=== PATIENT | male | born 1975 | race Hispanic/Latino ===

== ENCOUNTER 2017-09-30 19:48 | Emergency (ER) | payer OTHER ==
[~2017-09-30] VITALS: Ht 170.2 cm; Wt 131.5 kg
--- NOTE | 2017-09-30 21:07 | Diagnostic Imaging Report ---
EXAM: ABDOMEN ACUTE SERIES W/PA CXR DATE: 09/30/2017 8:13 PM Time stamp on exam: 2019 hours INDICATION: Constipation COMPARISON: None FINDINGS: LINES/TUBES: None BOWEL PATTERN: No evidence for obstruction. SOFT TISSUES: No abnormal calcifications. No mass effect. CHEST: The lungs are clear, no cardiomegaly, pleural effusion or pneumothorax. BONES: No acute findings. IMPRESSION: 1. No acute intrathoracic abnormality. 2. No evidence of obstructive bowel gas pattern. Signed by: Dr. Og Bryan M.D. on 09/30/2017 9:03 PM
[2017-09-30] MEDS ORDERED: LACTULOSE20 GM/30 M PO (21:41)
[2017-09-30 21:42] VITALS: BP 156/90
== END 2017-09-30 21:49 | disposition home or self-care (01) ==
LOC: ER 19:48
DX: K59.00 Constipation, unspecified (principal)
CPT/HCPCS: 74022; 99283

== ENCOUNTER 2020-04-25 06:36 | Inpatient (IN) | payer OTHER ==
[~2020-04-25] VITALS: Ht 170.2 cm; Wt 142.0 kg
[~2020-04-25 06:36] MED LIST: LACTULOSE20 GM/30 M PO
[2020-04-25 07:37] LABS: BASOPHILS % 0.5 % (0.0-1.0); EOSINOPHILS # (AUTO) 0.2 (0.0-0.4); EOSINOPHILS % 2.4 % (0.0-6.0); HEMATOCRIT 26.1 % (38.2-49.6); HEMOGLOBIN 7.6 g/dL (14.0-18.0); LYMPHOCYTES % 15.2 % (18.0-39.1); MEAN CORPUSCULAR HEMOGLOBIN 28.6 pg (28-32); MEAN CORPUSCULAR HGB CONC 29.1 g/dL (31-35); MEAN CORPUSCULAR VOLUME 98.1 fL (81-99); MONOCYTES # (AUTO) 0.5 (0.2-0.8); NEUTROPHILS # (AUTO) 4.6 (2.1-6.9); NEUTROPHILS % 73.1 % (38.7-80.0); PLATELET COUNT 202 x10e3/uL (140-360); RED BLOOD COUNT 2.66 x10e6/uL (4.3-5.7); RED CELL DISTRIBUTION WIDTH 15.7 % (11.7-14.4)
[2020-04-25 07:44] LABS: CLARITY,URINE HAZY (CLEAR); COLOR,URINE YELLOW (YELLOW)
[2020-04-25 07:45] LABS: BILIRUBIN,URINE NEGATIVE (NEGATIVE); KETONES,URINE NEGATIVE (NEGATIVE); LEUKOCYTE ESTERASE ,URINE TRACE (NEGATIVE); NITRITE,URINE NEGATIVE (NEGATIVE); PROTEIN,URINE DIPSTICK >=300 (NEGATIVE); URINE UROBILINOGEN 0.2 mg/dL (0.2 - 1)
[2020-04-25 07:48] LABS: INR 1.13; PROTHROMBIN TIME 15.1 seconds (11.9-14.5)
[2020-04-25 07:49] LABS: PARTIAL THROMBOPLASTIN TIME 42.2 seconds (23.8-35.5)
[2020-04-25 07:57] LABS: WBC,URINE (MAN) 21-50 /HPF (0-5)
[2020-04-25 07:58] LABS: BACTERIA,URINE FEW /HPF; EPITHELIAL CELLS,URINE FEW /LPF; MUCUS,URINE FEW (RARE)
[2020-04-25 07:59] LABS: ALBUMIN 3.2 g/dL (3.5-5.0); ALBUMIN/GLOBULIN RATIO 0.9 (0.8-2.0); ANION GAP 19.3 mmol/L (8-16); CREATININE, SERUM 10.69 mg/dL (0.72-1.25)
[2020-04-25 08:05] LABS: CREATINE KINASE MB 8.3 ng/mL (0-5.0)
[2020-04-25 08:07] LABS: CALCIUM 6.2 mg/dL (8.4-10.2); POTASSIUM 7.3 mmol/L (3.5-5.1)
[2020-04-25] MEDS ORDERED: SODIUM BICARBONATE 8.4% INJ 50 ML SYR IV STA ×4 (08:36→18:53)
[2020-04-25] MEDS ORDERED: DEXTROSE 50% SYRINGE 50 ML IV STA (08:36)
[2020-04-25] MEDS ORDERED: CALCIUM GLUCONATE 10% INJ 4.65 MEQ in SODIUM CHLORIDE 0.9% 50ML 50 ML IV ONE (08:45)
[2020-04-25] MEDS ORDERED: INSULIN REGULAR, HUMAN 100 UNIT/1 ML 3ML VIAL IV ONE (08:45)
[2020-04-25] MEDS: CEFTRIAXONE SOD 1 GM/NS 50 ML 50 ML IV SCH ×2 (08:53→22:07)
[2020-04-25] MEDS ORDERED: ONDANSETRON HCL INJ 2MG/ML 2ML 2 MG/ML VIAL IV PRN ×2 (09:45→11:00)
[2020-04-25] MEDS ORDERED: LIDOCAINE HCL 1% LOCAL INJ 20 ML VIAL ONE (09:54)
[2020-04-25] MEDS ORDERED: ACETAMINOPHEN 325 MG TAB PO STA (10:49)
[2020-04-25] MEDS ORDERED: DESMOPRESSIN ACETATE 4 MCG/ML VIAL IV STA (10:49)
[2020-04-25] MEDS ORDERED: SODIUM CHLORIDE 0.9% 250ML 250 ML IV ONE (11:00)
[2020-04-25] MEDS ORDERED: SOD POLYSTYRENE SULFONATE SUSP 15 GM/60 ML BTL PO ONE (11:00)
[2020-04-25] MEDS ORDERED: DEXTROSE 50% SYRINGE 50 ML IV PRN (11:00)
[2020-04-25] MEDS ORDERED: ZOLPIDEM TARTRATE 5 MG TAB PO PRN (11:00)
[2020-04-25] MEDS ORDERED: DESMOPRESSIN ACETATE IV ONE (11:15)
[2020-04-25] MEDS ORDERED: SODIUM CHLORIDE 0.9% IV ONE (11:15)
[2020-04-25] MEDS ORDERED: SODIUM BICARBONATE 8.4% SYRING 50 ML ONE (11:22)
[2020-04-25] MEDS: INSULIN REGULAR, HUMAN 100 UNIT/1 ML 3ML VIAL SQ SCH ×3 (11:30→21:00)
[2020-04-25 11:59] LABS: CREATINE KINASE MB 8.1 ng/mL (0-5.0)
[2020-04-25 12:00] VITALS: BP 106/44
[2020-04-25] MEDS ORDERED: SODIUM CHLORIDE 0.9% 1000ML 2,000 ML ONE (12:26)
[2020-04-25 12:30] VITALS: BP 106/44
[2020-04-25 12:31] VITALS: BP 106/44
[2020-04-25] MEDS ORDERED: SODIUM CHLORIDE 0.9% 1000ML 2,000 ML IV PRN (13:00)
[2020-04-25] MEDS ORDERED: MANNITOL 25% 12.5GM/50 ML VIAL IV PRN (13:00)
[2020-04-25] MEDS ORDERED: HEPARIN SOD (PORCINE) 1000 UNIT/ML SDV IV PRN (13:00)
[2020-04-25] MEDS ORDERED: SODIUM CHLORIDE 0.9% 250ML 500 ML IV PRN (13:00)
[2020-04-25] MEDS ORDERED: ALBUMIN 25% 12.5GM 0.25 GM/ML BTL IV PRN (13:00)
[2020-04-25 16:00] VITALS: BP 152/78
[2020-04-25 16:29] LABS: ABG HCO3 15 mmol/L (22-26); ABG PCO2 36 mmHg (35-45); ABG PH 7.23 (7.35-7.45); ABG PO2 77 mmHg (80-105); ABG TCO2 16
[2020-04-25 18:27] LABS: CREATINE KINASE MB 10.4 ng/mL (0-5.0)
[2020-04-25 18:40] LABS: ANION GAP 17.4 mmol/L (8-16); CREATININE, SERUM 8.6 mg/dL (0.72-1.25); POTASSIUM 5.4 mmol/L (3.5-5.1)
[2020-04-25 18:47] LABS: CALCIUM 6.8 mg/dL (8.4-10.2)
[2020-04-25 20:00] VITALS: BP 126/68
[2020-04-25 21:00] VITALS: BP 122/74
[2020-04-26] VITALS (9 sets, daily range): BP systolic 112–162; BP diastolic 64–89
[2020-04-26 05:24] LABS: BASOPHILS % 0.4 % (0.0-1.0); EOSINOPHILS # (AUTO) 0.2 (0.0-0.4); EOSINOPHILS % 3.7 % (0.0-6.0); LYMPHOCYTES # (AUTO) 1.1 (1.0-3.2); LYMPHOCYTES % 23.6 % (18.0-39.1); MEAN CORPUSCULAR HGB CONC 30.8 g/dL (31-35); MEAN CORPUSCULAR VOLUME 97.2 fL (81-99); MONOCYTES # (AUTO) 0.6 (0.2-0.8); MONOCYTES % 13.3 % (4.4-11.3); NEUTROPHILS # (AUTO) 2.7 (2.1-6.9); NEUTROPHILS % 58.6 % (38.7-80.0); PLATELET COUNT 171 x10e3/uL (140-360); RED BLOOD COUNT 2.17 x10e6/uL (4.3-5.7); RED CELL DISTRIBUTION WIDTH 15.8 % (11.7-14.4)
[2020-04-26 05:43] LABS: ALBUMIN 2.7 g/dL (3.5-5.0); ALBUMIN/GLOBULIN RATIO 0.9 (0.8-2.0); ANION GAP 15.5 mmol/L (8-16); CHOL/HDL RATIO 1.9 (3.9-4.7); CREATININE, SERUM 8.78 mg/dL (0.72-1.25); HEMOGLOBIN 6.5 g/dL (14.0-18.0); POTASSIUM 5.5 mmol/L (3.5-5.1)
[2020-04-26 05:45] LABS: HEMATOCRIT 21.1 % (38.2-49.6)
[2020-04-26 06:09] LABS: CALCIUM 6.3 mg/dL (8.4-10.2)
[2020-04-26] MEDS: INSULIN REGULAR, HUMAN 100 UNIT/1 ML 3ML VIAL SQ SCH ×4 (06:15→21:00)
[2020-04-26] MEDS ORDERED: SODIUM CHLORIDE 0.9% 250ML 250 ML IV ONE (06:30)
[2020-04-26] MEDS: CEFTRIAXONE SOD 1 GM/NS 50 ML 50 ML IV SCH ×2 (10:26→21:09)
[2020-04-26] MEDS: CALCIUM ACETATE 667 MG GELCAP PO SCH ×2 (12:30→17:25)
[2020-04-26] MEDS: SODIUM FERRIC GLUCONATE COMPLX 125 MG in SODIUM CHLORIDE 0.9% 100 ML 100 ML IV SCH (12:30)
[2020-04-27] VITALS (9 sets, daily range): BP systolic 151–173; BP diastolic 76–94
[2020-04-27 05:43] LABS: BASOPHILS % 0.4 % (0.0-1.0); EOSINOPHILS # (AUTO) 0.2 (0.0-0.4); EOSINOPHILS % 3.2 % (0.0-6.0); HEMATOCRIT 25.9 % (38.2-49.6); HEMOGLOBIN 8.1 g/dL (14.0-18.0); LYMPHOCYTES # (AUTO) 1.1 (1.0-3.2); LYMPHOCYTES % 20.6 % (18.0-39.1); MEAN CORPUSCULAR HEMOGLOBIN 28.6 pg (28-32); MEAN CORPUSCULAR HGB CONC 31.3 g/dL (31-35); MEAN CORPUSCULAR VOLUME 91.5 fL (81-99); MONOCYTES # (AUTO) 0.8 (0.2-0.8); MONOCYTES % 14.2 % (4.4-11.3); NEUTROPHILS # (AUTO) 3.3 (2.1-6.9); NEUTROPHILS % 61.2 % (38.7-80.0); PLATELET COUNT 184 x10e3/uL (140-360); RED BLOOD COUNT 2.83 x10e6/uL (4.3-5.7); RED CELL DISTRIBUTION WIDTH 15.6 % (11.7-14.4)
[2020-04-27 06:02] LABS: ANION GAP 15.2 mmol/L (8-16); CREATININE, SERUM 6.55 mg/dL (0.72-1.25); POTASSIUM 4.2 mmol/L (3.5-5.1)
[2020-04-27 06:58] LABS: CALCIUM 6.6 mg/dL (8.4-10.2)
[2020-04-27] MEDS: INSULIN REGULAR, HUMAN 100 UNIT/1 ML 3ML VIAL SQ SCH ×4 (07:00→21:00)
[2020-04-27] MEDS: PANTOPRAZOLE SOD 40 MG TABEC PO SCH (08:23)
[2020-04-27] MEDS: CALCIUM ACETATE 667 MG GELCAP PO SCH ×3 (08:24→16:29)
[2020-04-27] MEDS: CEFTRIAXONE SOD 1 GM/NS 50 ML 50 ML IV SCH ×2 (08:55→20:24)
[2020-04-27] MEDS: SODIUM FERRIC GLUCONATE COMPLX 125 MG in SODIUM CHLORIDE 0.9% 100 ML 100 ML IV SCH (13:25)
[2020-04-27] MEDS ORDERED: FENTANYL CITRATE/PF 100MCG/2 ML INJ ONE (14:05)
[2020-04-27] MEDS ORDERED: MIDAZOLAM HCL 2 MG/2 ML VIAL ONE (14:05)
[2020-04-27] MEDS ORDERED: LIDOCAINE HCL 1% LOCAL INJ 20 ML VIAL ONE (14:07)
[2020-04-27] MEDS ORDERED: SODIUM CHLORIDE 0.9% 250ML 250 ML ONE (14:07)
[2020-04-27] MEDS ORDERED: CALCIUM CARBONATE 500 MG CHEWABLE TABS PO PRN (14:15)
[2020-04-27] MEDS ORDERED: HEPARIN SOD (PORCINE) 1000 UNIT/ML SDV ONE ×2 (14:36→14:38)
[2020-04-27] MEDS ORDERED: ACETAMINOPHEN 325 MG TAB PO ONE (14:45)
[2020-04-28] VITALS (7 sets, daily range): BP systolic 123–178; BP diastolic 61–94
[2020-04-28 04:54] LABS: BASOPHILS % 0.6 % (0.0-1.0); EOSINOPHILS # (AUTO) 0.2 (0.0-0.4); EOSINOPHILS % 3.9 % (0.0-6.0); HEMATOCRIT 28.1 % (38.2-49.6); HEMOGLOBIN 8.7 g/dL (14.0-18.0); LYMPHOCYTES % 18.8 % (18.0-39.1); MEAN CORPUSCULAR HEMOGLOBIN 28.6 pg (28-32); MEAN CORPUSCULAR VOLUME 92.4 fL (81-99); MONOCYTES # (AUTO) 0.7 (0.2-0.8); MONOCYTES % 13.7 % (4.4-11.3); NEUTROPHILS # (AUTO) 3.4 (2.1-6.9); NEUTROPHILS % 62.6 % (38.7-80.0); PLATELET COUNT 184 x10e3/uL (140-360); RED BLOOD COUNT 3.04 x10e6/uL (4.3-5.7); RED CELL DISTRIBUTION WIDTH 15.4 % (11.7-14.4)
[2020-04-28 05:15] LABS: ALBUMIN 2.9 g/dL (3.5-5.0); ANION GAP 14.3 mmol/L (8-16); CALCIUM 7.4 mg/dL (8.4-10.2); CREATININE, SERUM 5.07 mg/dL (0.72-1.25); PHOSPHORUS 4.5 MG/DL (2.3-4.7); POTASSIUM 4.3 mmol/L (3.5-5.1)
[2020-04-28] MEDS: INSULIN REGULAR, HUMAN 100 UNIT/1 ML 3ML VIAL SQ SCH ×4 (06:19→21:00)
[2020-04-28] MEDS: CALCIUM ACETATE 667 MG GELCAP PO SCH ×3 (09:12→18:01)
[2020-04-28] MEDS: PANTOPRAZOLE SOD 40 MG TABEC PO SCH (09:12)
[2020-04-28] MEDS: SODIUM FERRIC GLUCONATE COMPLX 125 MG in SODIUM CHLORIDE 0.9% 100 ML 100 ML IV SCH (14:56)
[2020-04-29] VITALS: BP 149/85
[2020-04-29 04:00] VITALS: BP 179/85
[2020-04-29 04:52] LABS: BASOPHILS % 0.3 % (0.0-1.0); EOSINOPHILS # (AUTO) 0.2 (0.0-0.4); HEMATOCRIT 27.2 % (38.2-49.6); HEMOGLOBIN 8.6 g/dL (14.0-18.0); LYMPHOCYTES # (AUTO) 1.2 (1.0-3.2); LYMPHOCYTES % 19.8 % (18.0-39.1); MEAN CORPUSCULAR HEMOGLOBIN 29.5 pg (28-32); MEAN CORPUSCULAR HGB CONC 31.6 g/dL (31-35); MEAN CORPUSCULAR VOLUME 93.2 fL (81-99); MONOCYTES # (AUTO) 0.9 (0.2-0.8); MONOCYTES % 14.7 % (4.4-11.3); NEUTROPHILS # (AUTO) 3.7 (2.1-6.9); NEUTROPHILS % 60.9 % (38.7-80.0); PLATELET COUNT 171 x10e3/uL (140-360); RED BLOOD COUNT 2.92 x10e6/uL (4.3-5.7); RED CELL DISTRIBUTION WIDTH 14.9 % (11.7-14.4)
[2020-04-29 05:10] LABS: CALCIUM 7.6 mg/dL (8.4-10.2); CREATININE, SERUM 5.82 mg/dL (0.72-1.25)
[2020-04-29] MEDS: INSULIN REGULAR, HUMAN 100 UNIT/1 ML 3ML VIAL SQ SCH ×3 (06:13→16:30)
[2020-04-29] MEDS: CALCIUM ACETATE 667 MG GELCAP PO SCH ×2 (07:57→11:53)
[2020-04-29] MEDS: PANTOPRAZOLE SOD 40 MG TABEC PO SCH (07:57)
[2020-04-29] MEDS ORDERED: Calcium Acetate PO (09:18)
[2020-04-29] MEDS ORDERED: PANTOPRAZOLE SO40 MG PO (09:18)
[2020-04-29 09:35] VITALS: BP 177/91
[2020-04-29] MEDS ORDERED: LIPITOR10 MG PO (09:56)
[2020-04-29] MEDS ORDERED: NORVASC10 MG PO (09:56)
[2020-04-29] MEDS ORDERED: AMLODIPINE BESYLATE 10 MG TAB PO SCH (10:15)
[2020-04-29] MEDS: SODIUM FERRIC GLUCONATE COMPLX 125 MG in SODIUM CHLORIDE 0.9% 100 ML 100 ML IV SCH (11:53)
[2020-04-29 12:06] VITALS: BP 168/81
[2020-04-29] MEDS ORDERED: ONDANSETRON HCL 4 MG ORAL DISINTEGRATING TAB PO PRN (12:45)
[2020-04-29 16:00] VITALS: BP 154/79
[2020-04-29 17:14] LABS: TOTAL PROTEIN 24HR, URINE 7150.5 mg/24hr (50-100); TOTAL PROTEIN, URINE 408.6 mg/dL (1-14)
[2020-04-30 14:11] LABS: ALPHA 2 GLOBULIN URINE PEP 14.6 % (.)
== END 2020-04-29 18:25 | disposition home or self-care (01) | DRG 291 ==
LOC: ER 07:21 → ERHOLD 09:49 → IMCU 12:05
PROVIDERS: ADMIT Internal Medicine; ATTEND Internal Medicine
PROC: 30233N1 Transfusion of Nonautologous Red Blood Cells into Peripheral Vein, Percutaneous Approach (ICD-10-PCS; 2020-04-26)
PROC: 02PY33Z Removal of Infusion Device from Great Vessel, Percutaneous Approach (ICD-10-PCS; principal; 2020-04-27)
PROC: 02HV33Z Insertion of Infusion Device into Superior Vena Cava, Percutaneous Approach (ICD-10-PCS; 2020-04-27)
PROC: 0JH63XZ Insertion of Tunneled Vascular Access Device into Chest Subcutaneous Tissue and Fascia, Percutaneous Approach (ICD-10-PCS; 2020-04-27)
PROC: B5181ZA Fluoroscopy of Superior Vena Cava using Low Osmolar Contrast, Guidance (ICD-10-PCS; 2020-04-27)
DX: I13.2 Hypertensive heart and chronic kidney disease with heart failure and with stage 5 chronic kidney disease, or end stage renal disease (principal); N18.6 End stage renal disease; I50.31 Acute diastolic (congestive) heart failure; N17.9 Acute kidney failure, unspecified; N39.0 Urinary tract infection, site not specified; E87.2 Acidosis; Z68.42 Body mass index [BMI] 45.0-49.9, adult; K92.2 Gastrointestinal hemorrhage, unspecified; D62 Acute posthemorrhagic anemia; E11.22 Type 2 diabetes mellitus with diabetic chronic kidney disease; D63.1 Anemia in chronic kidney disease; E11.21 Type 2 diabetes mellitus with diabetic nephropathy; E87.5 Hyperkalemia; E66.9 Obesity, unspecified; G47.33 Obstructive sleep apnea (adult) (pediatric); E66.01 Morbid (severe) obesity due to excess calories; E11.42 Type 2 diabetes mellitus with diabetic polyneuropathy; E11.621 Type 2 diabetes mellitus with foot ulcer; Z11.59 Encounter for screening for other viral diseases; Z89.421 Acquired absence of other right toe(s)
CPT/HCPCS: 36415; 36558; 71045; 74176; 74470; 76770; 76937; 77001; 80048; 80053; 80061; 81001; 81050; 82040; 82270; 82550; 82553; 82728; 82784; 82805; 82948; 83036; 83540; 83880; 84100; 84156; 84165; 84166; 84466; 84484; 85025; 85610; 85730; 86021; 86039; 86160; 86225; 86235; 86704; 86705; 86706; 86803; 86850; 86900; 86920; 87040; 87086; 87340; 90935; 90962; 93005; 93970; 94660; 96372; 99152; 99153; 99284; C1892; J0610; J0696; J1644; J1817; J2001; J2250; J2916; J3010; J7030; J7050; J7799; P9016; U0002

== ENCOUNTER 2020-11-29 08:12 | Emergency (ER) | payer BC ==
[~2020-11-29] VITALS: Ht 170.2 cm; Wt 142.0 kg
[~2020-11-29 08:12] MED LIST changes: +Calcium Acetate PO; +LIPITOR10 MG PO; +NORVASC10 MG PO; +PANTOPRAZOLE SO40 MG PO
[2020-11-29 08:45] LABS: BASOPHILS # (AUTO) 0.1 (0.0-0.1); BASOPHILS % 0.5 % (0.0-1.0); EOSINOPHILS # (AUTO) 0.2 (0.0-0.4); EOSINOPHILS % 1.5 % (0.0-6.0); HEMATOCRIT 37.4 % (38.2-49.6); HEMOGLOBIN 12.2 g/dL (14.0-18.0); LYMPHOCYTES % 9.4 % (18.0-39.1); MEAN CORPUSCULAR HEMOGLOBIN 29.1 pg (28-32); MEAN CORPUSCULAR HGB CONC 32.6 g/dL (31-35); MEAN CORPUSCULAR VOLUME 89.3 fL (81-99); MONOCYTES # (AUTO) 0.7 (0.2-0.8); MONOCYTES % 6.3 % (4.4-11.3); NEUTROPHILS # (AUTO) 8.8 (2.1-6.9); NEUTROPHILS % 81.7 % (38.7-80.0); PLATELET COUNT 217 x10e3/uL (140-360); RED BLOOD COUNT 4.19 x10e6/uL (4.3-5.7); RED CELL DISTRIBUTION WIDTH 14.6 % (11.7-14.4)
[2020-11-29 09:02] LABS: ALBUMIN 2.6 g/dL (3.5-5.0); ALBUMIN/GLOBULIN RATIO 0.8 (0.8-2.0); ANION GAP 17.4 mmol/L (8-16); CREATININE, SERUM 8.2 mg/dL (0.72-1.25); POTASSIUM 4.4 mmol/L (3.5-5.1)
[2020-11-29 09:04] LABS: CALCIUM 5.8 mg/dL (8.4-10.2)
== END 2020-11-29 10:37 | disposition home or self-care (01) ==
LOC: ER 08:58
DX: T85.691A Other mechanical complication of intraperitoneal dialysis catheter, initial encounter (principal); I12.0 Hypertensive chronic kidney disease with stage 5 chronic kidney disease or end stage renal disease; E11.22 Type 2 diabetes mellitus with diabetic chronic kidney disease; N18.6 End stage renal disease; Z99.2 Dependence on renal dialysis; E78.5 Hyperlipidemia, unspecified
CPT/HCPCS: 36415; 71045; 80053; 85025; 99283

== ENCOUNTER 2022-01-16 16:34 | Inpatient (IN) | payer BC, MEDICARE ==
[~2022-01-16] VITALS: Ht 170.2 cm; Wt 142.0 kg
[2022-01-16] MEDS ORDERED: Vancomycin IV 1 GM in SODIUM CHLORIDE 0.9% 250ML 250 ML IV ONE (17:15)
[2022-01-16 17:22] LABS: BASOPHILS # (AUTO) 0.1 (0.0-0.1); BASOPHILS % 0.4 % (0.0-1.0); EOSINOPHILS % 0.2 % (0.0-6.0); HEMATOCRIT 34.5 % (38.2-49.6); HEMOGLOBIN 10.5 g/dL (14.0-18.0); LYMPHOCYTES # (AUTO) 0.8 (1.0-3.2); LYMPHOCYTES % 6.1 % (18.0-39.1); MEAN CORPUSCULAR HEMOGLOBIN 27.5 pg (28-32); MEAN CORPUSCULAR HGB CONC 30.4 g/dL (31-35); MEAN CORPUSCULAR VOLUME 90.3 fL (81-99); MONOCYTES # (AUTO) 0.9 (0.2-0.8); MONOCYTES % 7.2 % (4.4-11.3); NEUTROPHILS # (AUTO) 10.9 (2.1-6.9); PLATELET COUNT 301 x10e3/uL (140-360); RED BLOOD COUNT 3.82 x10e6/uL (4.3-5.7); RED CELL DISTRIBUTION WIDTH 16.1 % (11.7-14.4)
[2022-01-16 17:39] LABS: ALBUMIN 2.5 g/dL (3.5-5.0); ALBUMIN/GLOBULIN RATIO 0.4 (0.8-2.0); ANION GAP 29.4 mmol/L (8-16); CALCIUM 8.8 mg/dL (8.4-10.2); CREATININE, SERUM 14.89 mg/dL (0.72-1.25); POTASSIUM 5.4 mmol/L (3.5-5.1)
[2022-01-16] MEDS ORDERED: ONDANSETRON HCL INJ 2MG/ML 2ML 2 MG/ML VIAL IV PRN (17:45)
[2022-01-16] MEDS ORDERED: DEXTROSE 50% SYRINGE 50 ML IV PRN (17:45)
[2022-01-16] MEDS ORDERED: SODIUM CHLORIDE FLUSH 10 ML SYR INJ PRN (17:45)
[2022-01-16] MEDS: INSULIN REGULAR, HUMAN 100 UNIT/1 ML SQ SCH ×2 (17:45→21:00)
[2022-01-16] MEDS: Morphine 4mg INJECTION 4 MG/ML INJ IV PRN ×2 (18:00→22:43)
[2022-01-16] MEDS ORDERED: SOD POLYSTYRENE SULFONATE SUSP 15 GM/60 ML BTL PO ONE (18:00)
[2022-01-16 22:01] VITALS: BP 126/76
[2022-01-16 22:02] VITALS: BP 126/76
[2022-01-16 22:28] VITALS: BP 126/76
[2022-01-16] MEDS: ATORVASTATIN 20 MG TAB PO SCH (22:42)
[2022-01-16] MEDS: HEPARIN SOD (PORCINE) 5,000 UNIT/ML VIAL SC SCH (23:01)
[2022-01-17] VITALS (8 sets, daily range): BP systolic 106–146; BP diastolic 55–66
[2022-01-17] MEDS ORDERED: Morphine 2mg Syringe 2 MG/ML SYR ONE (05:21)
[2022-01-17] MEDS ORDERED: SODIUM CHLORIDE 0.9% 100 ML ONE (05:23)
[2022-01-17] MEDS: Morphine 4mg INJECTION 4 MG/ML INJ IV PRN ×3 (05:37→18:12)
[2022-01-17 06:58] LABS: BASOPHILS # (AUTO) 0.1 (0.0-0.1); BASOPHILS % 0.4 % (0.0-1.0); EOSINOPHILS # (AUTO) 0.1 (0.0-0.4); EOSINOPHILS % 0.4 % (0.0-6.0); HEMATOCRIT 28.3 % (38.2-49.6); HEMOGLOBIN 8.7 g/dL (14.0-18.0); LYMPHOCYTES # (AUTO) 0.9 (1.0-3.2); LYMPHOCYTES % 7.3 % (18.0-39.1); MEAN CORPUSCULAR HEMOGLOBIN 27.4 pg (28-32); MEAN CORPUSCULAR HGB CONC 30.7 g/dL (31-35); MEAN CORPUSCULAR VOLUME 89.3 fL (81-99); MONOCYTES # (AUTO) 1.3 (0.2-0.8); MONOCYTES % 10.3 % (4.4-11.3); NEUTROPHILS # (AUTO) 10.3 (2.1-6.9); NEUTROPHILS % 79.8 % (38.7-80.0); PLATELET COUNT 273 x10e3/uL (140-360); RED BLOOD COUNT 3.17 x10e6/uL (4.3-5.7)
[2022-01-17 07:25] LABS: ALBUMIN 2.1 g/dL (3.5-5.0); ALBUMIN/GLOBULIN RATIO 0.4 (0.8-2.0); ANION GAP 26.8 mmol/L (8-16); CALCIUM 7.8 mg/dL (8.4-10.2); CREATININE, SERUM 14.77 mg/dL (0.72-1.25); POTASSIUM 4.8 mmol/L (3.5-5.1)
[2022-01-17] MEDS: INSULIN REGULAR, HUMAN 100 UNIT/1 ML SQ SCH ×4 (07:30→20:27)
[2022-01-17] MEDS ORDERED: SODIUM CHLORIDE 0.9% 1000ML 2,000 ML ONE (08:28)
[2022-01-17] MEDS: PANTOPRAZOLE SOD 40 MG TABEC PO SCH (10:32)
[2022-01-17] MEDS: AMLODIPINE BESYLATE 10 MG TAB PO SCH (10:32)
[2022-01-17] MEDS: HEPARIN SOD (PORCINE) 5,000 UNIT/ML VIAL SC SCH ×3 (10:37→20:34)
[2022-01-17] MEDS ORDERED: ENOXAPARIN 30 MG/0.3 ML SYR SC SCH (17:00)
[2022-01-17] MEDS ORDERED: HYDROXYZINE HCL 25 MG TAB PO PRN (19:30)
[2022-01-17] MEDS: ATORVASTATIN 20 MG TAB PO SCH (20:24)
[2022-01-17] MEDS: ACETAMINOPHEN 325 MG TAB PO PRN (20:36)
[2022-01-17] MEDS ORDERED: LASIX80 MG PO (20:38)
[2022-01-18] VITALS (10 sets, daily range): BP systolic 96–115; BP diastolic 53–67
[2022-01-18] MEDS: Morphine 4mg INJECTION 4 MG/ML INJ IV PRN ×3 (00:07→21:35)
[2022-01-18] MEDS: PANTOPRAZOLE SOD 40 MG TABEC PO SCH (05:40)
[2022-01-18 06:40] LABS: BASOPHILS # (AUTO) 0.1 (0.0-0.1); BASOPHILS % 0.5 % (0.0-1.0); EOSINOPHILS # (AUTO) 0.1 (0.0-0.4); EOSINOPHILS % 0.8 % (0.0-6.0); HEMATOCRIT 28.2 % (38.2-49.6); HEMOGLOBIN 8.6 g/dL (14.0-18.0); LYMPHOCYTES % 7.4 % (18.0-39.1); MEAN CORPUSCULAR HEMOGLOBIN 27.7 pg (28-32); MEAN CORPUSCULAR HGB CONC 30.5 g/dL (31-35); MEAN CORPUSCULAR VOLUME 90.7 fL (81-99); MONOCYTES # (AUTO) 1.4 (0.2-0.8); MONOCYTES % 10.4 % (4.4-11.3); NEUTROPHILS # (AUTO) 10.4 (2.1-6.9); NEUTROPHILS % 75.7 % (38.7-80.0); PLATELET COUNT 302 x10e3/uL (140-360); RED BLOOD COUNT 3.11 x10e6/uL (4.3-5.7); RED CELL DISTRIBUTION WIDTH 15.9 % (11.7-14.4)
[2022-01-18 07:06] LABS: CALCIUM 8.5 mg/dL (8.4-10.2); CREATININE, SERUM 9.89 mg/dL (0.72-1.25)
[2022-01-18 07:08] LABS: CHOL/HDL RATIO 4.7 (3.9-4.7)
[2022-01-18 07:28] LABS: THYROID STIMULATING HORMONE 1.581 uIU/mL (0.350-4.940)
[2022-01-18] MEDS: INSULIN REGULAR, HUMAN 100 UNIT/1 ML SQ SCH ×4 (07:30→21:00)
[2022-01-18] MEDS: HEPARIN SOD (PORCINE) 5,000 UNIT/ML VIAL SC SCH ×2 (09:00→21:34)
[2022-01-18] MEDS: AMLODIPINE BESYLATE 10 MG TAB PO SCH (09:00)
[2022-01-18] MEDS ORDERED: BUPIVACAINE HC 0.75% PF 10ML VIAL INJ ONE (12:23)
[2022-01-18] MEDS ORDERED: Vancomycin IV 1 GM VIAL ONE (12:23)
[2022-01-18] MEDS ORDERED: NEOSTIGMINE 1 MG/ML 10ML VIAL ONE (12:23)
[2022-01-18] MEDS ORDERED: FENTANYL CITRATE/PF 100MCG/2 ML INJ ONE (12:26)
[2022-01-18] MEDS ORDERED: MIDAZOLAM HCL 2 MG/2 ML VIAL ONE (12:26)
[2022-01-18] MEDS ORDERED: SEVOFLURANE INHAL SOLN 250 ML PEN BTL ONE (13:04)
[2022-01-18] MEDS ORDERED: POVIDONE IODINE 0.05% 0.05 % ML PO ONE (13:04)
[2022-01-18] MEDS ORDERED: ONDANSETRON HCL INJ 2MG/ML 2ML 2 MG/ML VIAL ONE (13:04)
[2022-01-18] MEDS ORDERED: LIDOCAINE HCL 2% LOCAL INJ 5 ML SDV VIAL INJ ONE (13:04)
[2022-01-18] MEDS ORDERED: EPHEDRINE SULFATE INJ 50 MG/ML VIAL ONE (13:04)
[2022-01-18] MEDS ORDERED: PROPOFOL IV EMULSION 10 MG/ML 20 ML VIAL ONE (13:04)
[2022-01-18 17:05] LABS: CALCIUM 8.3 mg/dL (8.4-10.2); CREATININE, SERUM 10.6 mg/dL (0.72-1.25)
[2022-01-18] MEDS: ATORVASTATIN 20 MG TAB PO SCH (21:33)
[2022-01-19] VITALS (7 sets, daily range): BP systolic 101–108; BP diastolic 41–72
[2022-01-19 06:21] LABS: BASOPHILS # (AUTO) 0.1 (0.0-0.1); BASOPHILS % 0.6 % (0.0-1.0); EOSINOPHILS # (AUTO) 0.2 (0.0-0.4); EOSINOPHILS % 1.5 % (0.0-6.0); HEMATOCRIT 27.7 % (38.2-49.6); LYMPHOCYTES # (AUTO) 1.4 (1.0-3.2); LYMPHOCYTES % 11.1 % (18.0-39.1); MEAN CORPUSCULAR HEMOGLOBIN 27.6 pg (28-32); MEAN CORPUSCULAR HGB CONC 28.9 g/dL (31-35); MEAN CORPUSCULAR VOLUME 95.5 fL (81-99); MONOCYTES # (AUTO) 1.2 (0.2-0.8); MONOCYTES % 9.4 % (4.4-11.3); NEUTROPHILS # (AUTO) 9.1 (2.1-6.9); NEUTROPHILS % 70.3 % (38.7-80.0); PLATELET COUNT 338 x10e3/uL (140-360); RED CELL DISTRIBUTION WIDTH 16.7 % (11.7-14.4)
[2022-01-19 06:45] LABS: ANION GAP 24.1 mmol/L (8-16); CREATININE, SERUM 11.2 mg/dL (0.72-1.25); POTASSIUM 4.1 mmol/L (3.5-5.1)
[2022-01-19] MEDS: INSULIN REGULAR, HUMAN 100 UNIT/1 ML SQ SCH ×4 (07:30→20:22)
[2022-01-19] MEDS: PANTOPRAZOLE SOD 40 MG TABEC PO SCH (08:23)
[2022-01-19] MEDS: HEPARIN SOD (PORCINE) 5,000 UNIT/ML VIAL SC SCH (08:25)
[2022-01-19] MEDS ORDERED: SODIUM CHLORIDE 0.9% 1000ML 2,000 ML ONE (08:33)
[2022-01-19] MEDS: AMLODIPINE BESYLATE 10 MG TAB PO SCH (09:00)
[2022-01-19] MEDS ORDERED: ALBUMIN 25% 12.5GM 0.25 GM/ML BTL IV PRN (09:30)
[2022-01-19] MEDS ORDERED: SODIUM CHLORIDE 0.9% 1000ML 2,000 ML IV PRN (09:30)
[2022-01-19] MEDS ORDERED: SODIUM CHLORIDE 0.9% 250ML 500 ML IV PRN (09:30)
[2022-01-19] MEDS: Morphine 4mg INJECTION 4 MG/ML INJ IV PRN ×2 (15:10→20:20)
[2022-01-19] MEDS: EPOETIN ALFA-EPBX 10,000 UNIT/ML VIAL SC SCH (17:40)
[2022-01-19] MEDS: ATORVASTATIN 20 MG TAB PO SCH (20:22)
[2022-01-19] MEDS: ACETAMINOPHEN 325 MG TAB PO PRN (23:58)
[2022-01-20] VITALS (7 sets, daily range): BP systolic 95–108; BP diastolic 58–72
[2022-01-20 06:59] LABS: BASOPHILS # (AUTO) 0.1 (0.0-0.1); BASOPHILS % 0.5 % (0.0-1.0); EOSINOPHILS # (AUTO) 0.3 (0.0-0.4); EOSINOPHILS % 2.5 % (0.0-6.0); HEMATOCRIT 27.9 % (38.2-49.6); HEMOGLOBIN 8.2 g/dL (14.0-18.0); LYMPHOCYTES # (AUTO) 1.4 (1.0-3.2); LYMPHOCYTES % 10.6 % (18.0-39.1); MEAN CORPUSCULAR HEMOGLOBIN 27.6 pg (28-32); MEAN CORPUSCULAR HGB CONC 29.4 g/dL (31-35); MEAN CORPUSCULAR VOLUME 93.9 fL (81-99); MONOCYTES % 7.5 % (4.4-11.3); NEUTROPHILS # (AUTO) 9.2 (2.1-6.9); NEUTROPHILS % 71.4 % (38.7-80.0); PLATELET COUNT 394 x10e3/uL (140-360); RED BLOOD COUNT 2.97 x10e6/uL (4.3-5.7); RED CELL DISTRIBUTION WIDTH 16.2 % (11.7-14.4)
[2022-01-20] MEDS: INSULIN REGULAR, HUMAN 100 UNIT/1 ML SQ SCH ×4 (07:30→21:00)
[2022-01-20] MEDS: PANTOPRAZOLE SOD 40 MG TABEC PO SCH (07:30)
[2022-01-20 07:37] LABS: ALBUMIN 1.9 g/dL (3.5-5.0); ALBUMIN/GLOBULIN RATIO 0.4 (0.8-2.0); CALCIUM 9.1 mg/dL (8.4-10.2); CREATININE, SERUM 7.58 mg/dL (0.72-1.25)
[2022-01-20] MEDS: AMLODIPINE BESYLATE 10 MG TAB PO SCH (09:00)
[2022-01-20] MEDS ORDERED: LIDOCAINE HCL 2% LOCAL INJ 5 ML SDV VIAL INJ ONE (12:31)
[2022-01-20] MEDS ORDERED: ONDANSETRON HCL INJ 2MG/ML 2ML 2 MG/ML VIAL ONE (12:31)
[2022-01-20] MEDS ORDERED: SEVOFLURANE INHAL SOLN 250 ML PEN BTL ONE (12:31)
[2022-01-20] MEDS ORDERED: PROPOFOL IV EMULSION 10 MG/ML 20 ML VIAL ONE (12:31)
[2022-01-20] MEDS ORDERED: POVIDONE IODINE 0.05% 0.05 % ML PO ONE (12:31)
[2022-01-20] MEDS ORDERED: HYDROMORPHONE 1MG/1ML INJ ONE (14:16)
[2022-01-20] MEDS ORDERED: FENTANYL CITRATE/PF 100MCG/2 ML INJ ONE ×2 (14:30→15:27)
[2022-01-20] MEDS ORDERED: MIDAZOLAM HCL 2 MG/2 ML VIAL ONE (15:27)
[2022-01-20] MEDS: Morphine 4mg INJECTION 4 MG/ML INJ IV PRN ×2 (16:29→21:11)
[2022-01-20] MEDS: ATORVASTATIN 20 MG TAB PO SCH (21:11)
[2022-01-20] MEDS ORDERED: Morphine 2mg Syringe 2 MG/ML SYR IV ONE (22:30)
[2022-01-20] MEDS ORDERED: HYDROCODONE/APAP 10MG-325MG TAB PO ONE (22:30)
[2022-01-21] VITALS (8 sets, daily range): BP systolic 87–115; BP diastolic 57–70
[2022-01-21] MEDS: Morphine 4mg INJECTION 4 MG/ML INJ IV PRN ×3 (03:41→19:58)
[2022-01-21 06:40] LABS: BASOPHILS # (AUTO) 0.1 (0.0-0.1); BASOPHILS % 0.6 % (0.0-1.0); EOSINOPHILS # (AUTO) 0.3 (0.0-0.4); EOSINOPHILS % 2.5 % (0.0-6.0); HEMATOCRIT 28.5 % (38.2-49.6); HEMOGLOBIN 8.2 g/dL (14.0-18.0); LYMPHOCYTES # (AUTO) 1.3 (1.0-3.2); LYMPHOCYTES % 10.1 % (18.0-39.1); MEAN CORPUSCULAR HGB CONC 28.8 g/dL (31-35); MEAN CORPUSCULAR VOLUME 93.8 fL (81-99); MONOCYTES # (AUTO) 0.6 (0.2-0.8); MONOCYTES % 4.9 % (4.4-11.3); NEUTROPHILS # (AUTO) 9.2 (2.1-6.9); NEUTROPHILS % 73.4 % (38.7-80.0); PLATELET COUNT 449 x10e3/uL (140-360); RED BLOOD COUNT 3.04 x10e6/uL (4.3-5.7); RED CELL DISTRIBUTION WIDTH 16.4 % (11.7-14.4)
[2022-01-21 07:04] LABS: ANION GAP 21.5 mmol/L (8-16); CALCIUM 8.5 mg/dL (8.4-10.2); CREATININE, SERUM 9.29 mg/dL (0.72-1.25); POTASSIUM 4.5 mmol/L (3.5-5.1)
[2022-01-21] MEDS: INSULIN REGULAR, HUMAN 100 UNIT/1 ML SQ SCH ×4 (07:30→21:00)
[2022-01-21] MEDS: PANTOPRAZOLE SOD 40 MG TABEC PO SCH (07:30)
[2022-01-21] MEDS: AMLODIPINE BESYLATE 10 MG TAB PO SCH (09:00)
[2022-01-21 09:24] LABS: LYMPHOCYTES % (MANUAL) 13 % (19-48); METAMYELOCYTES % (MANUAL) 1 % (0-0); MONOCYTES % (MANUAL) 3 % (3.4-9.0); MYELOCYTES % (MANUAL) 3 % (0-0); NEUTROPHILS % (MANUAL) 79 % (40-74); PLATELET ESTIMATE ADEQUATE; PLATELET MORPHOLOGY COMMENT NORMAL
[2022-01-21 09:25] LABS: RBC MORPHOLOGY COMMENT NORMAL
[2022-01-21] MEDS ORDERED: SODIUM CHLORIDE 0.9% 1000ML 2,000 ML ONE (10:48)
[2022-01-21] MEDS ORDERED: SODIUM CHLORIDE 0.9% 1000ML 2,000 ML IV PRN (11:45)
[2022-01-21] MEDS ORDERED: DEXTROSE 5% 250ML 250 ML IV ONE (11:48)
[2022-01-21] MEDS ORDERED: MIDAZOLAM HCL 2 MG/2 ML VIAL ONE (11:48)
[2022-01-21] MEDS ORDERED: FENTANYL CITRATE/PF 100MCG/2 ML INJ ONE (11:48)
[2022-01-21] MEDS ORDERED: DEXAMETHASONE SOD PHOS INJ 4 MG/ML SDV ONE (11:59)
[2022-01-21] MEDS ORDERED: BUPIVACAINE HC 0.75% PF 10ML VIAL INJ ONE (11:59)
[2022-01-21] MEDS ORDERED: NEOMYCIN/POLYMYX/BACITR OINT 0.9 GM PKT ONE (11:59)
[2022-01-21] MEDS ORDERED: Vancomycin IV 1 GM VIAL ONE (12:07)
[2022-01-21] MEDS ORDERED: PHENYLEPHRINE HCL 1% 10 MG/ML VIAL ONE (14:48)
[2022-01-21] MEDS ORDERED: POVIDONE IODINE 0.05% 0.05 % ML PO ONE (14:49)
[2022-01-21] MEDS ORDERED: PROPOFOL IV EMULSION 10 MG/ML 20 ML VIAL ONE (14:49)
[2022-01-21] MEDS ORDERED: SEVOFLURANE INHAL SOLN 250 ML PEN BTL ONE (14:49)
[2022-01-21] MEDS ORDERED: LIDOCAINE HCL 2% LOCAL INJ 5 ML SDV VIAL INJ ONE (14:49)
[2022-01-21] MEDS ORDERED: ONDANSETRON HCL INJ 2MG/ML 2ML 2 MG/ML VIAL ONE (14:49)
[2022-01-21] MEDS ORDERED: EPHEDRINE SULFATE INJ 50 MG/ML VIAL ONE (14:49)
[2022-01-21] MEDS: CALCIUM ACETATE 667 MG GELCAP PO SCH ×2 (16:09→22:06)
[2022-01-21] MEDS: HYDROCODONE/APAP 7.5MG-325MG 1 EA TAB PO PRN (16:11)
[2022-01-21] MEDS: EPOETIN ALFA-EPBX 10,000 UNIT/ML VIAL SC SCH (17:45)
[2022-01-21] MEDS: ATORVASTATIN 20 MG TAB PO SCH (22:06)
[2022-01-22] VITALS (9 sets, daily range): BP systolic 87–117; BP diastolic 53–82
[2022-01-22] MEDS: Morphine 4mg INJECTION 4 MG/ML INJ IV PRN (00:17)
[2022-01-22] MEDS: HYDROCODONE/APAP 7.5MG-325MG 1 EA TAB PO PRN ×2 (04:45→20:51)
[2022-01-22] MEDS: INSULIN REGULAR, HUMAN 100 UNIT/1 ML SQ SCH ×4 (07:30→20:45)
[2022-01-22] MEDS: PANTOPRAZOLE SOD 40 MG TABEC PO SCH (08:00)
[2022-01-22] MEDS: AMLODIPINE BESYLATE 10 MG TAB PO SCH (09:50)
[2022-01-22] MEDS: CALCIUM ACETATE 667 MG GELCAP PO SCH ×3 (09:50→20:45)
[2022-01-22] MEDS: FUROSEMIDE 40 MG TAB PO SCH (09:50)
[2022-01-22] MEDS: HEPARIN SOD (PORCINE) 5,000 UNIT/ML VIAL SC SCH ×2 (10:05→20:44)
[2022-01-22 11:03] LABS: BASOPHILS # (AUTO) 0.1 (0.0-0.1); BASOPHILS % 0.4 % (0.0-1.0); EOSINOPHILS # (AUTO) 0.3 (0.0-0.4); EOSINOPHILS % 2.5 % (0.0-6.0); HEMATOCRIT 26.7 % (38.2-49.6); HEMOGLOBIN 7.5 g/dL (14.0-18.0); LYMPHOCYTES # (AUTO) 1.4 (1.0-3.2); LYMPHOCYTES % 10.8 % (18.0-39.1); MEAN CORPUSCULAR HEMOGLOBIN 27.4 pg (28-32); MEAN CORPUSCULAR HGB CONC 28.1 g/dL (31-35); MEAN CORPUSCULAR VOLUME 97.4 fL (81-99); MONOCYTES # (AUTO) 0.8 (0.2-0.8); MONOCYTES % 6.1 % (4.4-11.3); NEUTROPHILS # (AUTO) 9.3 (2.1-6.9); NEUTROPHILS % 71.7 % (38.7-80.0); PLATELET COUNT 421 x10e3/uL (140-360); RED BLOOD COUNT 2.74 x10e6/uL (4.3-5.7); RED CELL DISTRIBUTION WIDTH 16.3 % (11.7-14.4)
[2022-01-22 11:33] LABS: ANION GAP 18.2 mmol/L (8-16); CALCIUM 8.6 mg/dL (8.4-10.2); CREATININE, SERUM 7.11 mg/dL (0.72-1.25); POTASSIUM 4.2 mmol/L (3.5-5.1)
[2022-01-22] MEDS: GABAPENTIN 300 MG CAP PO SCH ×2 (15:30→20:45)
[2022-01-22] MEDS: ATORVASTATIN 20 MG TAB PO SCH (20:45)
[2022-01-23] VITALS (8 sets, daily range): BP systolic 94–113; BP diastolic 59–72
[2022-01-23] MEDS: HYDROCODONE/APAP 7.5MG-325MG 1 EA TAB PO PRN ×2 (05:16→17:12)
[2022-01-23 07:15] LABS: BASOPHILS # (AUTO) 0.1 (0.0-0.1); BASOPHILS % 0.5 % (0.0-1.0); EOSINOPHILS # (AUTO) 0.4 (0.0-0.4); EOSINOPHILS % 3.2 % (0.0-6.0); HEMATOCRIT 26.3 % (38.2-49.6); HEMOGLOBIN 7.4 g/dL (14.0-18.0); LYMPHOCYTES # (AUTO) 1.9 (1.0-3.2); LYMPHOCYTES % 15.4 % (18.0-39.1); MEAN CORPUSCULAR HEMOGLOBIN 27.5 pg (28-32); MEAN CORPUSCULAR HGB CONC 28.1 g/dL (31-35); MEAN CORPUSCULAR VOLUME 97.8 fL (81-99); MONOCYTES # (AUTO) 0.7 (0.2-0.8); MONOCYTES % 6.1 % (4.4-11.3); NEUTROPHILS # (AUTO) 7.8 (2.1-6.9); NEUTROPHILS % 64.5 % (38.7-80.0); PLATELET COUNT 487 x10e3/uL (140-360); RED BLOOD COUNT 2.69 x10e6/uL (4.3-5.7); RED CELL DISTRIBUTION WIDTH 16.2 % (11.7-14.4)
[2022-01-23] MEDS: INSULIN REGULAR, HUMAN 100 UNIT/1 ML SQ SCH ×4 (07:30→21:00)
[2022-01-23 07:39] LABS: ALBUMIN/GLOBULIN RATIO 0.4 (0.8-2.0); ANION GAP 19.4 mmol/L (8-16); CALCIUM 8.8 mg/dL (8.4-10.2); CREATININE, SERUM 8.44 mg/dL (0.72-1.25); POTASSIUM 4.4 mmol/L (3.5-5.1)
[2022-01-23] MEDS: FUROSEMIDE 40 MG TAB PO SCH (08:49)
[2022-01-23] MEDS: PANTOPRAZOLE SOD 40 MG TABEC PO SCH (08:49)
[2022-01-23] MEDS: AMLODIPINE BESYLATE 10 MG TAB PO SCH (08:50)
[2022-01-23] MEDS: GABAPENTIN 300 MG CAP PO SCH ×3 (08:50→21:49)
[2022-01-23] MEDS: CALCIUM ACETATE 667 MG GELCAP PO SCH ×3 (08:50→21:49)
[2022-01-23 09:17] LABS: BAND NEUTROPHILS % (MANUAL) 1 %; EOSINOPHILS % (MANUAL) 1 % (0-7); LYMPHOCYTES % (MANUAL) 14 % (19-48); METAMYELOCYTES % (MANUAL) 1 % (0-0); MONOCYTES % (MANUAL) 9 % (3.4-9.0); MYELOCYTES % (MANUAL) 4 % (0-0); NEUTROPHILS % (MANUAL) 70 % (40-74); PLATELET ESTIMATE ADEQUATE; PLATELET MORPHOLOGY COMMENT NORMAL; RBC MORPHOLOGY COMMENT NORMAL
[2022-01-23] MEDS: HEPARIN SOD (PORCINE) 5,000 UNIT/ML VIAL SC SCH ×2 (09:54→21:59)
[2022-01-23] MEDS ORDERED: POLYETHYLENE GLYCOL 3350 17 GM PACK PO PRN (17:15)
[2022-01-23] MEDS: ATORVASTATIN 20 MG TAB PO SCH (21:49)
[2022-01-24] VITALS (8 sets, daily range): BP systolic 90–126; BP diastolic 51–74
[2022-01-24 06:34] LABS: BASOPHILS % 0.3 % (0.0-1.0); EOSINOPHILS # (AUTO) 0.4 (0.0-0.4); EOSINOPHILS % 3.1 % (0.0-6.0); HEMOGLOBIN 7.3 g/dL (14.0-18.0); LYMPHOCYTES # (AUTO) 1.8 (1.0-3.2); LYMPHOCYTES % 14.5 % (18.0-39.1); MEAN CORPUSCULAR HEMOGLOBIN 27.7 pg (28-32); MEAN CORPUSCULAR HGB CONC 28.1 g/dL (31-35); MEAN CORPUSCULAR VOLUME 98.5 fL (81-99); MONOCYTES # (AUTO) 0.7 (0.2-0.8); MONOCYTES % 5.3 % (4.4-11.3); NEUTROPHILS # (AUTO) 8.3 (2.1-6.9); NEUTROPHILS % 66.9 % (38.7-80.0); PLATELET COUNT 507 x10e3/uL (140-360); RED BLOOD COUNT 2.64 x10e6/uL (4.3-5.7); RED CELL DISTRIBUTION WIDTH 16.3 % (11.7-14.4)
[2022-01-24 06:50] LABS: ANION GAP 22.1 mmol/L (8-16); CREATININE, SERUM 10.89 mg/dL (0.72-1.25); MAGNESIUM 2.7 MG/DL (1.3-2.1); POTASSIUM 5.1 mmol/L (3.5-5.1)
[2022-01-24] MEDS: INSULIN REGULAR, HUMAN 100 UNIT/1 ML SQ SCH ×4 (07:30→21:00)
[2022-01-24] MEDS ORDERED: SODIUM CHLORIDE 0.9% 1000ML 2,000 ML ONE (08:16)
[2022-01-24] MEDS ORDERED: ALBUMIN 25% 12.5GM 0.25 GM/ML BTL IV PRN (10:15)
[2022-01-24] MEDS ORDERED: SODIUM CHLORIDE 0.9% 250ML 500 ML IV PRN (10:15)
[2022-01-24] MEDS ORDERED: SODIUM CHLORIDE 0.9% 1000ML 2,000 ML IV PRN (10:15)
[2022-01-24] MEDS: HEPARIN SOD (PORCINE) 5,000 UNIT/ML VIAL SC SCH ×2 (16:43→21:39)
[2022-01-24] MEDS: EPOETIN ALFA-EPBX 10,000 UNIT/ML VIAL SC SCH (16:52)
[2022-01-24] MEDS: CALCIUM ACETATE 667 MG GELCAP PO SCH ×3 (16:53→21:39)
[2022-01-24] MEDS: FERROUS SULFATE 325 MG TAB PO SCH (16:54)
[2022-01-24] MEDS: ASCORBIC ACID 500 MG TAB PO SCH (16:54)
[2022-01-24] MEDS: PANTOPRAZOLE SOD 40 MG TABEC PO SCH (16:54)
[2022-01-24] MEDS: FUROSEMIDE 40 MG TAB PO SCH (16:54)
[2022-01-24] MEDS: GABAPENTIN 300 MG CAP PO SCH ×3 (16:54→21:39)
[2022-01-24] MEDS: AMLODIPINE BESYLATE 10 MG TAB PO SCH ×2 (16:55→16:57)
[2022-01-24] MEDS: DOCUSATE SODIUM 100 MG CAP PO SCH (16:56)
[2022-01-24] MEDS: ATORVASTATIN 20 MG TAB PO SCH (21:32)
[2022-01-24] MEDS: HYDROCODONE/APAP 7.5MG-325MG 1 EA TAB PO PRN (21:36)
[2022-01-25 05:56] VITALS: BP 106/65
[2022-01-25] MEDS: INSULIN REGULAR, HUMAN 100 UNIT/1 ML SQ SCH ×4 (07:30→21:00)
[2022-01-25] MEDS: PANTOPRAZOLE SOD 40 MG TABEC PO SCH (07:50)
[2022-01-25 09:00] VITALS: BP 106/65
[2022-01-25] MEDS: DOCUSATE SODIUM 100 MG CAP PO SCH ×2 (09:00→17:00)
[2022-01-25 09:07] VITALS: BP 110/62
[2022-01-25] MEDS: HEPARIN SOD (PORCINE) 5,000 UNIT/ML VIAL SC SCH ×2 (09:30→22:17)
[2022-01-25] MEDS: FUROSEMIDE 40 MG TAB PO SCH (09:55)
[2022-01-25] MEDS: FERROUS SULFATE 325 MG TAB PO SCH (09:55)
[2022-01-25] MEDS: ASCORBIC ACID 500 MG TAB PO SCH (09:55)
[2022-01-25] MEDS: GABAPENTIN 300 MG CAP PO SCH ×3 (09:55→22:06)
[2022-01-25] MEDS: CALCIUM ACETATE 667 MG GELCAP PO SCH ×3 (09:55→21:00)
[2022-01-25 11:20] VITALS: BP 99/57
[2022-01-25 16:18] VITALS: BP 94/61
[2022-01-25 20:00] VITALS: BP 89/73
[2022-01-25] MEDS: ATORVASTATIN 20 MG TAB PO SCH (22:06)
[2022-01-26] VITALS: BP 114/61
[2022-01-26 06:40] LABS: ANION GAP 18.1 mmol/L (8-16); CALCIUM 9.3 mg/dL (8.4-10.2); CREATININE, SERUM 9.56 mg/dL (0.72-1.25); POTASSIUM 4.1 mmol/L (3.5-5.1)
[2022-01-26] MEDS: INSULIN REGULAR, HUMAN 100 UNIT/1 ML SQ SCH ×3 (07:30→16:00)
[2022-01-26] MEDS: PANTOPRAZOLE SOD 40 MG TABEC PO SCH (07:45)
[2022-01-26 08:00] VITALS: BP 116/67
[2022-01-26] MEDS: DOCUSATE SODIUM 100 MG CAP PO SCH ×2 (08:17→15:34)
[2022-01-26] MEDS: HEPARIN SOD (PORCINE) 5,000 UNIT/ML VIAL SC SCH (09:00)
[2022-01-26] MEDS: GABAPENTIN 300 MG CAP PO SCH (09:45)
[2022-01-26] MEDS: ASCORBIC ACID 500 MG TAB PO SCH (09:45)
[2022-01-26] MEDS: AMLODIPINE BESYLATE 10 MG TAB PO SCH (09:45)
[2022-01-26] MEDS: FERROUS SULFATE 325 MG TAB PO SCH (09:45)
[2022-01-26] MEDS: FUROSEMIDE 40 MG TAB PO SCH (09:45)
[2022-01-26] MEDS: CALCIUM ACETATE 667 MG GELCAP PO SCH ×2 (09:45→14:00)
[2022-01-26 11:55] VITALS: BP 96/65
[2022-01-26] MEDS ORDERED: HEPARIN SOD (PORCINE) 1000 UNIT/ML SDV IV PRN (14:00)
[2022-01-26] MEDS ORDERED: ONDANSETRON HCL 4 MG ORAL DISINTEGRATING TAB PO PRN (15:15)
[2022-01-26 16:01] VITALS: BP 106/66
== END 2022-01-26 17:37 | DRG 853 ==
LOC: ER 17:05 → ERHOLD 17:43 → MED/SURG3 21:43
PROVIDERS: ADMIT Internal Medicine; ATTEND Internal Medicine
PROC: 3E1M39Z Irrigation of Peritoneal Cavity using Dialysate, Percutaneous Approach (ICD-10-PCS; principal; 2022-01-17)
PROC: 0QBN0ZZ Excision of Right Metatarsal, Open Approach (ICD-10-PCS; 2022-01-18)
PROC: 0SPG0JZ Removal of Synthetic Substitute from Left Ankle Joint, Open Approach (ICD-10-PCS; 2022-01-18)
PROC: 0J9R0ZZ Drainage of Left Foot Subcutaneous Tissue and Fascia, Open Approach (ICD-10-PCS; 2022-01-18)
PROC: 3E0V329 Introduction of Other Anti-infective into Bones, Percutaneous Approach (ICD-10-PCS; 2022-01-18)
PROC: 0Y6J0Z3 Detachment at Left Lower Leg, Low, Open Approach (ICD-10-PCS; 2022-01-20)
PROC: 0KBV0ZZ Excision of Right Foot Muscle, Open Approach (ICD-10-PCS; 2022-01-21)
PROC: 0QBN0ZZ Excision of Right Metatarsal, Open Approach (ICD-10-PCS; 2022-01-21)
DX: A41.9 Sepsis, unspecified organism (principal); N18.6 End stage renal disease; I12.0 Hypertensive chronic kidney disease with stage 5 chronic kidney disease or end stage renal disease; M86.171 Other acute osteomyelitis, right ankle and foot; L03.116 Cellulitis of left lower limb; T84.223A Displacement of internal fixation device of bones of foot and toes, initial encounter; L02.416 Cutaneous abscess of left lower limb; Z68.42 Body mass index [BMI] 45.0-49.9, adult; E11.69 Type 2 diabetes mellitus with other specified complication; E11.22 Type 2 diabetes mellitus with diabetic chronic kidney disease; Z99.2 Dependence on renal dialysis; E78.5 Hyperlipidemia, unspecified; E87.5 Hyperkalemia; Z89.421 Acquired absence of other right toe(s); Y83.8 Other surgical procedures as the cause of abnormal reaction of the patient, or of later complication, without mention of misadventure at the time of the procedure; Z20.822 Contact with and (suspected) exposure to COVID-19; E66.01 Morbid (severe) obesity due to excess calories; R79.89 Other specified abnormal findings of blood chemistry; E11.42 Type 2 diabetes mellitus with diabetic polyneuropathy; D63.8 Anemia in other chronic diseases classified elsewhere; E11.621 Type 2 diabetes mellitus with foot ulcer; M25.472 Effusion, left ankle; B95.61 Methicillin susceptible Staphylococcus aureus infection as the cause of diseases classified elsewhere
CPT/HCPCS: 36415; 80048; 80053; 80061; 82948; 83036; 83605; 83735; 84443; 85025; 85651; 86141; 86704; 86706; 86850; 86900; 87040; 87071; 87075; 87186; 87205; 87340; 88300; 88304; 88307; 88311; 93925; 94799; 99251; 99284; C1713; J1100; J1170; J1644; J1817; J2001; J2250; J2270; J2370; J2405; J2543; J2710; J3010; J3370; J3410; J7030; J7050; J7070

== ENCOUNTER → 2022-05-06 | Outpatient (CLI) | payer BC, MEDICARE ==
[~2022-05-06] MED LIST changes: +LASIX80 MG PO
== END ==
LOC: WCC 14:31
PROVIDERS: ATTEND Plastic Surgery
DX: E11.29 Type 2 diabetes mellitus with other diabetic kidney complication (principal); E11.622 Type 2 diabetes mellitus with other skin ulcer; L98.498 Non-pressure chronic ulcer of skin of other sites with other specified severity; I70.25 Atherosclerosis of native arteries of other extremities with ulceration; I87.9 Disorder of vein, unspecified; I10 Essential (primary) hypertension

== ENCOUNTER → 2022-05-09 | Outpatient (CLI) | payer BC, MEDICARE | LOC: WCC 13:15 | PROVIDERS: ATTEND Plastic Surgery | DX: E11.622 Type 2 diabetes mellitus with other skin ulcer (principal); E11.29 Type 2 diabetes mellitus with other diabetic kidney complication; I70.25 Atherosclerosis of native arteries of other extremities with ulceration; L98.498 Non-pressure chronic ulcer of skin of other sites with other specified severity; I87.9 Disorder of vein, unspecified; I10 Essential (primary) hypertension ==

== ENCOUNTER → 2022-05-16 | Outpatient (CLI) | payer BC, MEDICARE | LOC: WCC 10:04 | PROVIDERS: ATTEND Plastic Surgery | DX: E11.622 Type 2 diabetes mellitus with other skin ulcer (principal); E11.29 Type 2 diabetes mellitus with other diabetic kidney complication; I70.25 Atherosclerosis of native arteries of other extremities with ulceration; L98.498 Non-pressure chronic ulcer of skin of other sites with other specified severity; I87.9 Disorder of vein, unspecified; I10 Essential (primary) hypertension ==

== ENCOUNTER → 2022-05-30 | Outpatient (CLI) | payer BC, MEDICARE ==
[~2022-05-30] MED LIST changes: +MUPIROCIN 2% OINT 22 GM TUBE ONE
== END ==
LOC: WCC 14:32
PROVIDERS: ATTEND Plastic Surgery
DX: E11.29 Type 2 diabetes mellitus with other diabetic kidney complication (principal); E11.622 Type 2 diabetes mellitus with other skin ulcer; L98.498 Non-pressure chronic ulcer of skin of other sites with other specified severity; I10 Essential (primary) hypertension; I87.9 Disorder of vein, unspecified; I70.25 Atherosclerosis of native arteries of other extremities with ulceration

== ENCOUNTER → 2022-06-27 | Outpatient (CLI) | payer BC, MEDICARE ==
[~2022-06-27] MED LIST changes: -MUPIROCIN 2% OINT 22 GM TUBE ONE
== END ==
LOC: WCC 09:59
PROVIDERS: ATTEND Plastic Surgery
DX: E11.29 Type 2 diabetes mellitus with other diabetic kidney complication (principal); E11.622 Type 2 diabetes mellitus with other skin ulcer; L98.498 Non-pressure chronic ulcer of skin of other sites with other specified severity; I70.25 Atherosclerosis of native arteries of other extremities with ulceration; I87.9 Disorder of vein, unspecified; I10 Essential (primary) hypertension